=== PATIENT | male | born 1970 | race Caucasian/White ===

== ENCOUNTER 2018-02-23 06:15 | Day surgery (SDC) | payer OTHER, MEDICARE, MEDICAID ==
[~2018-02-23] VITALS: Ht 175.3 cm; Wt 88.0 kg
[~2018-02-23 06:15] MED LIST: ACET-784 PO; ACET250T27 PO; BISA10S PR; CHOL3000 PO; LACT10SO32 PO; MELA3TAB66 PO; OS500 PO; RINGERS SOLUTION,LACTATED 1,000 ML IV ONE; RISP.5 PO; SENN8.6T90 PO; VALP250S23 PO
[2018-02-23] MEDS ORDERED: PROPOFOL 1% 20 ML VIAL IVP ONE (06:16)
[2018-02-23] MEDS ORDERED: FentaNYL CITRATE-PF 100 MCG/2 ML VIAL IVP ONE (06:16)
[2018-02-23] MEDS ORDERED: MIDAZOLAM HCL 2 MG/2 ML VIAL IVP ONE (06:16)
[2018-02-23] MEDS ORDERED: LIDOCAINE/PF 2% 5 ML VIAL IM ONE (06:16)
[2018-02-23] MEDS ORDERED: ROCURONIUM BROMIDE 10 MG/ML 5 ML VIAL IVP ONE (06:16)
[2018-02-23] MEDS ORDERED: RINGERS SOLUTION,LACTATED 1,000 ML IV ONE (07:00)
[2018-02-23] MEDS ORDERED: AMPICILLIN SODIUM 1 GM/VIAL ONE (07:44)
[2018-02-23] MEDS ORDERED: LORA2VIA33 IM (09:03)
[2018-02-23] MEDS ORDERED: LACO100 PO (09:03)
== END 2018-02-23 16:10 | disposition home or self-care (01) ==
LOC: SURGERY 06:15
PROVIDERS: ATTEND Dentist General Practice
DX: K05.30 Chronic periodontitis, unspecified (principal); G80.8 Other cerebral palsy; E22.2 Syndrome of inappropriate secretion of antidiuretic hormone; F41.8 Other specified anxiety disorders; K59.00 Constipation, unspecified; F73 Profound intellectual disabilities; E66.3 Overweight; Z68.28 Body mass index [BMI] 28.0-28.9, adult; Z86.69 Personal history of other diseases of the nervous system and sense organs; Z79.891 Long term (current) use of opiate analgesic; Z88.8 Allergy status to other drugs, medicaments and biological substances; Z79.899 Other long term (current) drug therapy
CPT/HCPCS: 41899; J0290; J2250; J2704; J3010; J3490 ×2; J7120

== ENCOUNTER 2019-04-26 05:58 | Day surgery (SDC) | payer OTHER, MEDICARE, MEDICAID ==
[~2019-04-26] VITALS: Ht 170.2 cm; Wt 88.2 kg
[~2019-04-26 05:58] MED LIST changes: -BISA10S PR; +BISA10SU11 PR; +LACO100 PO; -LACT10SO32 PO; +LORA2VIA33 IM
[2019-04-26] MEDS ORDERED: AMPICILLIN SODIUM 1 GM/VIAL ONE (06:55)
[2019-04-26] MEDS ORDERED: SODIUM CHLORIDE 0.9% 100 ML ONE (06:56)
[2019-04-26] MEDS ORDERED: RINGERS SOLUTION,LACTATED 1,000 ML IV ONE (07:00)
[2019-04-26] MEDS ORDERED: ROCURONIUM BROMIDE 10 MG/ML 5 ML VIAL IVP ONE (12:00)
[2019-04-26] MEDS ORDERED: FentaNYL CITRATE-PF 100 MCG/2 ML VIAL IVP ONE (12:00)
[2019-04-26] MEDS ORDERED: MIDAZOLAM HCL 2 MG/2 ML VIAL IVP ONE (12:00)
[2019-04-26] MEDS ORDERED: PROPOFOL 1% 20 ML VIAL IVP ONE (12:00)
[2019-04-26] MEDS ORDERED: LIDOCAINE/PF 2% 5 ML SYRINGE IVP ONE (12:00)
== END 2019-04-26 12:40 | disposition home or self-care (01) ==
LOC: SURGERY 05:58
PROVIDERS: ATTEND Dentist General Practice
DX: K02.9 Dental caries, unspecified (principal); K05.30 Chronic periodontitis, unspecified; G80.9 Cerebral palsy, unspecified; G40.909 Epilepsy, unspecified, not intractable, without status epilepticus; F41.9 Anxiety disorder, unspecified; K21.9 Gastro-esophageal reflux disease without esophagitis; E66.3 Overweight; Z68.30 Body mass index [BMI] 30.0-30.9, adult; Z79.899 Other long term (current) drug therapy
CPT/HCPCS: 41899; J0290; J2250; J2704; J3010; J3490 ×2; J7050; J7120

== ENCOUNTER 2020-08-28 06:10 | Day surgery (SDC) | payer OTHER, MEDICARE, MEDICAID ==
[~2020-08-28] VITALS: Ht 170.2 cm; Wt 88.2 kg
[~2020-08-28 06:10] MED LIST changes: -MELA3TAB66 PO; +MELA3TAB89 PO; -RINGERS SOLUTION,LACTATED 1,000 ML IV ONE; -RISP.5 PO; +RISP0.5T39 PO
[2020-08-28] MEDS ORDERED: RINGERS SOLUTION,LACTATED 1,000 ML IV ONE ×2 (06:30→06:31)
[2020-08-28] MEDS ORDERED: AMPICILLIN SODIUM 2 GM/NS 100 ML IV ONE (07:00)
[2020-08-28 07:07] LABS: BASOPHILS % (AUTO) 0.4 % (0.0-2.0); EOSINOPHILS % (AUTO) 0.6 % (1.0-6.0); HEMATOCRIT 41.6 % (41-53); HEMOGLOBIN 13.6 g/dL (13.5-17.5); LYMPHOCYTES # (AUTO) 5.1 K/uL (1.0-4.8); LYMPHOCYTES % (AUTO) 46.9 % (22.0-44.0); MEAN CORPUSCULAR HEMOGLOBIN 30.9 pg (26.0-34.0); MEAN CORPUSCULAR HGB CONC 32.6 G/dL (31.0-37.0); MEAN CORPUSCULAR VOLUME 95 fL (80-100); MONOCYTES % (AUTO) 18.1 % (2.0-9.0); NEUTROPHILS # (AUTO) 3.7 K/uL (1.8-7.7); PLATELET COUNT (AUTO) 140 K/uL (150-450); RED CELL DISTRIBUTION WIDTH 13.8 % (11.5-14.5)
[2020-08-28 07:16] LABS: ANION GAP 10 mmol/L (8-16); CALCIUM, TOTAL 9.7 mg/dL (8.8-10.5); CARBON DIOXIDE 24 mmol/L (22-29); CHLORIDE 103 mmol/L (98-107); CREATININE 1.26 mg/dL (0.60-1.30); GLOMERULAR FILTR. RATE CALC > 60 mL/min (>60); GLUCOSE,RANDOM 90 mg/dL (70-110); POTASSIUM 4.1 mmol/L (3.5-5.1); SODIUM SERUM 137 mmol/L (136-145); UREA NITROGEN, BLOOD 16 mg/dL (7-18)
[2020-08-28 07:21] LABS: INR 1.1 (0.9-1.1); PROTHROMBIN TIME 11.7 SEC (9.4-11.6)
[2020-08-28 07:22] LABS: ALANINE AMINOTRANSFERASE 12 U/L (12-78); ALBUMIN 3.5 g/dL (3.4-5.0); ALKALINE PHOSPHATASE 48 U/L (46-116); ASPARTATE AMINOTRANSFERASE 13 U/L (15-37); BILIRUBIN,TOTAL 0.4 mg/dL (0.1-1.0); TOTAL PROTEIN, SERUM 8.1 g/dL (6.4-8.2)
[2020-08-28 07:30] LABS: COVID AG,FIA SOURCE NASOPHARYNGEAL
[2020-08-28] MEDS ORDERED: FentaNYL CITRATE PF 100 MCG/2 ML VIAL IVP PRN (07:45)
[2020-08-28] MEDS ORDERED: HYDROmorphone 2 MG/ML VIAL IVP PRN (07:45)
[2020-08-28] MEDS ORDERED: MEPERIDINE-PF 25 MG/ML VIAL IVP PRN (07:45)
[2020-08-28] MEDS ORDERED: MIDAZOLAM HCL 5 MG/ML VIAL ONE (08:39)
[2020-08-28] MEDS ORDERED: FLUMAZENIL 0.1 MG/ML 5 ML VIAL IVP ONE ×2 (09:49→10:59)
[2020-08-28] MEDS ORDERED: DEXAMETHASONE SOD PHOS 4 MG/ML VIAL IVP ONE (12:00)
[2020-08-28] MEDS ORDERED: FentaNYL CITRATE PF 100 MCG/2 ML VIAL IVP ONE (12:00)
[2020-08-28] MEDS ORDERED: PROPOFOL 1% 20 ML VIAL IVP ONE (12:00)
[2020-08-28] MEDS ORDERED: ONDANSETRON HCL 4 MG/2 ML VIAL IVP ONE (12:00)
[2020-08-28] MEDS ORDERED: SUCCINYLCHOLINE CHLORIDE 20 MG/ML 10 ML VIAL IVP ONE (12:00)
[2020-08-28] MEDS ORDERED: KETAMINE HCL 50 MG/ML 10 ML VIAL IVP ONE (12:00)
== END 2020-08-28 11:35 | disposition home or self-care (01) ==
LOC: SURGERY 06:10
PROVIDERS: ATTEND Dentist General Practice
DX: K02.9 Dental caries, unspecified (principal); K05.30 Chronic periodontitis, unspecified; K03.6 Deposits [accretions] on teeth; G80.9 Cerebral palsy, unspecified; F41.9 Anxiety disorder, unspecified; F29 Unspecified psychosis not due to a substance or known physiological condition; G40.909 Epilepsy, unspecified, not intractable, without status epilepticus; R62.50 Unspecified lack of expected normal physiological development in childhood; E22.2 Syndrome of inappropriate secretion of antidiuretic hormone; Z88.8 Allergy status to other drugs, medicaments and biological substances; Z98.890 Other specified postprocedural states; Z79.899 Other long term (current) drug therapy
CPT/HCPCS: 36415; 41899; 71045; 80053; 85025; 85610; 85730; 87426; 93005; C9803; J0290; J0330; J1100; J2250; J2405; J2704; J3010; J3490 ×2; J7120

== ENCOUNTER 2021-09-03 05:45 | Day surgery (SDC) | payer OTHER, MEDICARE, MEDICAID ==
[~2021-09-03] VITALS: Ht 172.7 cm; Wt 89.0 kg
[~2021-09-03 05:45] MED LIST changes: -ACET250T27 PO; +ACET250T31 PO; +RINGERS SOLUTION,LACTATED 1,000 ML IV ONE
[2021-09-03] MEDS ORDERED: KETAMINE HCL 50 MG/ML 10 ML VIAL IVP ONE (05:46)
[2021-09-03] MEDS ORDERED: RINGERS SOLUTION,LACTATED 1,000 ML IV ONE (06:18)
[2021-09-03 06:36] LABS: COVID AG,FIA SOURCE NASOPHARYNGEAL
[2021-09-03] MEDS ORDERED: MIDAZOLAM HCL 5 MG/ML VIAL ONE (07:10)
[2021-09-03 08:13] LABS: BASOPHILS % (AUTO) 0.6 % (0.0-2.0); EOSINOPHILS % (AUTO) 0.4 % (1.0-6.0); HEMATOCRIT 35.6 % (41-53); LYMPHOCYTES % (AUTO) 33.8 % (22.0-44.0); MEAN CORPUSCULAR HEMOGLOBIN 30.8 pg (26.0-34.0); MEAN CORPUSCULAR HGB CONC 33.7 G/dL (31.0-37.0); MEAN CORPUSCULAR VOLUME 92 fL (80-100); MONOCYTES # (AUTO) 1.8 K/uL (0.1-1.0); MONOCYTES % (AUTO) 19.9 % (2.0-9.0); NEUTROPHILS % (AUTO) 45.3 % (40.0-70.0); PLATELET COUNT (AUTO) 143 K/uL (150-450); RED CELL DISTRIBUTION WIDTH 13.8 % (11.5-14.5)
[2021-09-03 08:16] LABS: ANION GAP 6 mmol/L (8-16); CARBON DIOXIDE 25 mmol/L (22-29); CHLORIDE 105 mmol/L (98-107); GLOMERULAR FILTR. RATE CALC > 60 mL/min (>60); GLUCOSE,RANDOM 91 mg/dL (70-110); POTASSIUM 3.7 mmol/L (3.5-5.1); SODIUM SERUM 136 mmol/L (136-145); UREA NITROGEN, BLOOD 13 mg/dL (7-18)
[2021-09-03 08:19] LABS: INR 1.1 (0.9-1.1); PROTHROMBIN TIME 11.8 SEC (9.4-11.6)
[2021-09-03 08:22] LABS: ALANINE AMINOTRANSFERASE 8 U/L (12-78); ALBUMIN 2.7 g/dL (3.4-5.0); ALKALINE PHOSPHATASE 45 U/L (46-116); ASPARTATE AMINOTRANSFERASE 10 U/L (15-37); BILIRUBIN,TOTAL 0.3 mg/dL (0.1-1.0); TOTAL PROTEIN, SERUM 6.8 g/dL (6.4-8.2)
[2021-09-03] MEDS ORDERED: AMPICILLIN SODIUM 2 GM/NS 100 ML IV ONE (08:38)
[2021-09-03] MEDS ORDERED: OXYGEN THERAPY IH SCH (20:00)
== END 2021-09-03 11:40 ==
LOC: SURGERY 05:45
PROVIDERS: ATTEND Dentist General Practice
DX: K02.9 Dental caries, unspecified (principal); K05.30 Chronic periodontitis, unspecified; K03.6 Deposits [accretions] on teeth; Z79.01 Long term (current) use of anticoagulants; Z79.899 Other long term (current) drug therapy; Z88.8 Allergy status to other drugs, medicaments and biological substances; Z88.1 Allergy status to other antibiotic agents; Z98.890 Other specified postprocedural states
CPT/HCPCS: 36415; 41899; 71045; 80053; 85025; 85610; 85730; 87426; 93005; C9803; J0290; J2250; J3490; J7120; Z7610

== ENCOUNTER 2023-09-29 05:29 | Day surgery (SDC) | payer OTHER, MEDICARE, MEDICAID ==
[~2023-09-29] VITALS: Ht 175.3 cm; Wt 88.6 kg
[~2023-09-29 05:29] MED LIST changes: -ACET250T31 PO; -RINGERS SOLUTION,LACTATED 1,000 ML IV ONE; +[UNRECOGNIZED DRUG - CODE] PO
[2023-09-29] MEDS ORDERED: RINGERS SOLUTION,LACTATED 1,000 ML IV ONE (06:14)
[2023-09-29] MEDS ORDERED: ONDANSETRON HCL 4 MG/2 ML VIAL ONE (06:29)
[2023-09-29] MEDS ORDERED: ROCURONIUM BROMIDE 10 MG/ML 5 ML VIAL ONE (06:29)
[2023-09-29] MEDS ORDERED: SUGAMMADEX SODIUM 200 MG/2 ML VIAL IVP ONE (06:29)
[2023-09-29] MEDS ORDERED: PROPOFOL 1% 20 ML VIAL IVP ONE (06:29)
[2023-09-29] MEDS ORDERED: LIDOCAINE/PF 2% 5 ML VIAL ONE (06:29)
[2023-09-29] MEDS ORDERED: DEXAMETHASONE SOD PHOS 4 MG/ML VIAL ONE (06:29)
[2023-09-29] MEDS ORDERED: METOPROLOL TARTRATE 5 MG/5 ML VIAL ONE (06:29)
[2023-09-29 07:25] LABS: BASOPHILS % (AUTO) 0.6 % (0.0-2.0); EOSINOPHILS % (AUTO) 1.1 % (1.0-6.0); HEMATOCRIT 39.4 % (41-53); HEMOGLOBIN 12.8 g/dL (13.5-17.5); LYMPHOCYTES # (AUTO) 4.7 K/uL (1.0-4.8); LYMPHOCYTES % (AUTO) 41.5 % (22.0-44.0); MEAN CORPUSCULAR HEMOGLOBIN 30.3 pg (26.0-34.0); MEAN CORPUSCULAR HGB CONC 32.5 G/dL (31.0-37.0); MEAN CORPUSCULAR VOLUME 93 fL (80-100); MONOCYTES % (AUTO) 17.5 % (2.0-9.0); NEUTROPHILS # (AUTO) 4.5 K/uL (1.8-7.7); NEUTROPHILS % (AUTO) 39.3 % (40.0-70.0); PLATELET COUNT (AUTO) 191 K/uL (150-450); RED BLOOD CELL COUNT(AUTO) 4.23 MIL/uL (4.50-5.90); RED CELL DISTRIBUTION WIDTH 13.7 % (11.5-14.5); WHITE BLOOD COUNT (AUTO) 11.4 K/uL (4.5-11.0)
[2023-09-29 07:40] LABS: ANION GAP 4 mmol/L (8-16); CALCIUM, TOTAL 9.6 mg/dL (8.8-10.5); CARBON DIOXIDE 30 mmol/L (22-29); CHLORIDE 103 mmol/L (98-107); CREATININE 1.03 mg/dL (0.60-1.30); GLOMERULAR FILTR. RATE CALC > 60 mL/min (>60); GLUCOSE,RANDOM 93 mg/dL (70-110); INR 1.1 (0.9-1.1); POTASSIUM 4.6 mmol/L (3.5-5.1); PROTHROMBIN TIME 11.4 SEC (9.4-11.6); SODIUM SERUM 137 mmol/L (136-145); UREA NITROGEN, BLOOD 11 mg/dL (7-18)
[2023-09-29 07:46] LABS: ALANINE AMINOTRANSFERASE 13 U/L (12-78); ALBUMIN 2.9 g/dL (3.4-5.0); ALKALINE PHOSPHATASE 45 U/L (46-116); ASPARTATE AMINOTRANSFERASE 11 U/L (15-37); BILIRUBIN,TOTAL 0.3 mg/dL (0.1-1.0); TOTAL PROTEIN, SERUM 7.2 g/dL (6.4-8.2)
[2023-09-29] MEDS ORDERED: AMPICILLIN SODIUM 2 GM/NS 100 ML IV ONE (07:50)
[2023-09-29] MEDS: RINGERS SOLUTION,LACTATED 1,000 ML IV ONE (08:11)
== END 2023-09-29 10:55 | disposition home or self-care (01) ==
LOC: SURGERY 05:29
PROVIDERS: ATTEND Dentist General Practice
DX: K05.6 Periodontal disease, unspecified (principal); K02.9 Dental caries, unspecified; R06.02 Shortness of breath; I51.9 Heart disease, unspecified; R91.8 Other nonspecific abnormal finding of lung field; R94.31 Abnormal electrocardiogram [ECG] [EKG]; F34.9 Persistent mood [affective] disorder, unspecified; F99 Mental disorder, not otherwise specified; F79 Unspecified intellectual disabilities; Z79.899 Other long term (current) drug therapy; Z98.818 Other dental procedure status; Z88.8 Allergy status to other drugs, medicaments and biological substances
CPT/HCPCS: 41899; 71045; 80053; 85025; 85610; 85730; 36415; 93005; J0290; J2704; J1100; J3490 ×3; J2405; Q9967; J7120